=== PATIENT | female | born 1990 | race Caucasian/White ===

== ENCOUNTER 2016-11-20 12:15 | Inpatient (IN) | payer SELFPAY ==
[2016-11-20] VITALS (58 sets, daily range): BP systolic 85–146; BP diastolic 49–84; PULSE 65–98; RESP 17–18; TEMP 97.7–98.7; O2SAT 98–100
[~2016-11-20] VITALS: Ht 167.6 cm; Wt 54.0 kg
[2016-11-20] MEDS ORDERED: PREN27TA PO (12:27)
[2016-11-20] MEDS ORDERED: ZOFR4TAB IM (12:32)
[2016-11-20] MEDS ORDERED: BUPR2SUB SL (12:32)
[2016-11-20] MEDS ORDERED: SODIUM CHLOR 0.9% 1000 ML INJ 1,000 ML IV SCH (12:37)
[2016-11-20] MEDS ORDERED: SODIUM CHLORIDE 0.9% FLUSH 10 ML FLUSH IVF PRN (12:45)
[2016-11-20] MEDS ORDERED: PANTOPRAZOLE INJ 80 MG in SODIUM CHLORIDE 0.9% INJ 100 ML IV SCH (12:45)
[2016-11-20] MEDS ORDERED: PANTOPRAZOLE INJ 80 MG in SODIUM CHLORIDE 0.9% INJ 35 ML IV ONE (12:45)
[2016-11-20 13:13] LABS: AUTOMATED NEUTROPHIL # 17.9 TH/MM3 (1.8-7.7); BASOPHIL % 0.2 % (0.0-2.0); EOSINOPHIL % 0.1 % (0.0-4.0); HEMO FLAGS DIFF FINAL; LYMPH % 10.3 % (9.0-44.0); LYMPHOCYTE # 2.2 TH/MM3 (1.0-4.8); MEAN CELL VOLUME 82.6 FL (80.0-100.0); MEAN CORPUSCULAR HEMOGLOBIN 26.6 PG (27.0-34.0); MEAN CORPUSCULAR HGB CONC 32.2 % (32.0-36.0); MONO % 4.5 % (0.0-8.0); NEUT % 84.9 % (16.0-70.0); PLATELET COUNT 366 TH/MM3 (150-450); RED BLOOD COUNT 3.63 MIL/MM3 (4.00-5.30); WHITE BLOOD COUNT 21.1 TH/MM3 (4.0-11.0)
[2016-11-20 13:19] LABS: APTT (PATIENT) 28.7 SEC (24.3-30.1); INTERNATIONAL NORMALIZED RATIO 0.9 RATIO; PROTHROMBIN TIME - PATIENT 9.9 SEC (9.8-11.6)
[2016-11-20] MEDS: PANTOPRAZOLE INJ 80 MG in SODIUM CHLORIDE 0.9% INJ 100 ML IV SCH (13:28)
[2016-11-20 13:31] LABS: ANION GAP 13 MEQ/L (5-15); AST (GOT) 97 U/L (15-37); BICARBONATE 23.4 MEQ/L (21.0-32.0); BLOOD UREA NITROGEN 7 MG/DL (7-18); CHLORIDE 100 MEQ/L (98-107); GLOMERULAR FILTRATION RATE 208 ML/MIN (>89); SODIUM (NA) 136 MEQ/L (136-145)
--- NOTE | 2016-11-20 13:31 | PD ---
HPI Chief Complaint: Alcohol/Drug Intoxication Time Seen by Provider: 12:37 Travel History International Travel<30 days: No Contact w/Intl Traveler<30days: No Traveled to known affect area: No History of Present Illness HPI This is a 26-year-old female who is 35 weeks who presents to the emergency department with coffee-ground emesis. Patient was at the halfway and was released from halfway but while she was there had several episodes of dark emesis that the nurses thought was coffee-ground. She was thought to be vomiting because she is in withdrawal from IV drugs. She doesn't provide much history. She received a dose of Suboxone at halfway prior to coming here. She denies any abdominal pain, vaginal bleeding and she says she feels normal movement. She does feel some discomfort in the upper abdomen, moderate severity , constant with no fevers or chills. PFSH Past Medical History Medical History: Unable to Obtain Tetanus Vaccination: Unknown ?: : 5 Para: 4 Past Surgical History Surgical History: Unable to Obtain Social History Alcohol Use: Yes Tobacco Use: Yes Substance Use: Yes (DOCUMENTED IN TRIAGE ASSESS) Allergies-Medications (Allergen,Severity, Reaction): Coded Allergies: No Known Allergies (Unverified , 11/20/16) Reported Meds & Prescriptions Reported Meds & Active Scripts Active Reported Zofran (Ondansetron HCl) 4 Mg Tab 4 Mg IM Buprenorphine (Buprenorphine HCl) 2 Mg Subl 2 Mg SL DAILY 27-0.8 mg ( Vit W/ Ferrous Fumara) 1 Tab Tab 1 PO DAILY HS Review of Systems ROS Limitations: Poor Historian Physical Exam Narrative GENERAL: Chronically unwell-appearing SKIN: Track flores on the upper and lower extremities. HEAD: Atraumatic. Normocephalic. EYES: Pupils equal and round. No injection or drainage. ENT: Moist mucous membranes NECK: Trachea midline. CARDIOVASCULAR: Regular rate and rhythm. No murmur appreciated. RESPIRATORY: Clear to auscultation. Breath sounds equal bilaterally. GASTROINTESTINAL: Abdomen soft, tender to palpation in the epigastrium with no rebound or guarding. MUSCULOSKELETAL: No obvious deformities. NEUROLOGICAL: Sleepy but awakens to answer questions.. No obvious cranial nerve deficits. Moving all extremities. PSYCHIATRIC: Appropriate mood and affect; insight and judgment normal. Data Data Last Documented VS Vital Signs Date Time Temp Pulse Resp B/P Pulse Ox O2 Delivery O2 Flow Rate FiO2 11/20/16 13:02 89 18 120/70 98 Room Air 11/20/16 12:21 98.7 Orders Complete Blood Count With Diff (11/20/16 12:37) Comprehensive Metabolic Panel (11/20/16 12:37) Prothrombin Time / Inr (Pt) (11/20/16 12:37) Act Partial Throm Time (Ptt) (11/20/16 12:37) Type And Screen (11/20/16 12:37) Blood Product Administration .UPON TRANSFUSION (11/20/16 12:37) Ecg Monitoring (11/20/16 12:37) Iv Access Insert/Monitor (11/20/16 12:37) Oximetry (11/20/16 12:37) Sodium Chlor 0.9% 1000 Ml Inj (Ns 1000 M (11/20/16 12:37) Sodium Chloride 0.9% Flush (Ns Flush) (11/20/16 12:45) Pantoprazole Inj (Protonix Inj) (11/20/16 12:45) Electrocardiogram (11/20/16 ) Pantoprazole Inj (Protonix Inj) (11/20/16 13:00) Admit Order (Ed Use Only) (11/20/16 13:26) Labs Laboratory Tests Test 11/20/16 12:30 White Blood Count 21.1 TH/MM3 Red Blood Count 3.63 MIL/MM3 Hemoglobin 9.7 GM/DL Hematocrit 30.0 % Mean Corpuscular Volume 82.6 FL Mean Corpuscular Hemoglobin 26.6 PG Mean Corpuscular Hemoglobin 32.2 % Concent Red Cell Distribution Width 13.0 % Platelet Count 366 TH/MM3 Mean Platelet Volume 10.1 FL Neutrophils (%) (Auto) 84.9 % Lymphocytes (%) (Auto) 10.3 % Monocytes (%) (Auto) 4.5 % Eosinophils (%) (Auto) 0.1 % Basophils (%) (Auto) 0.2 % Neutrophils # (Auto) 17.9 TH/MM3 Lymphocytes # (Auto) 2.2 TH/MM3 Monocytes # (Auto) 0.9 TH/MM3 Eosinophils # (Auto) 0.0 TH/MM3 Basophils # (Auto) 0.0 TH/MM3 CBC Comment DIFF FINAL Differential Comment Prothrombin Time 9.9 SEC Prothromb Time International 0.9 RATIO Ratio Activated Partial 28.7 SEC Thromboplast Time Sodium Level 136 MEQ/L Potassium Level 4.0 MEQ/L Chloride Level 100 MEQ/L Carbon Dioxide Level 23.4 MEQ/L Anion Gap 13 MEQ/L Blood Urea Nitrogen 7 MG/DL Creatinine 0.38 MG/DL Estimat Glomerular Filtration 208 ML/MIN Rate Random Glucose 69 MG/DL Calcium Level 8.9 MG/DL Total Bilirubin 0.6 MG/DL Aspartate Amino Transf 97 U/L (AST/SGOT) Alanine Aminotransferase 96 U/L (ALT/SGPT) Alkaline Phosphatase 202 U/L Total Protein 7.3 GM/DL Albumin 2.4 GM/DL MDM Medical Decision Making Medical Screen Exam Complete: Yes Emergency Medical Condition: Yes Interpretation(s) Afebrile, mild tachycardia, normotensive Leukocytosis Hemoglobin is 9.7 Transaminitis Coags are normal Differential Diagnosis Gastritis, peptic ulcer disease, anemia, opiate withdrawal, dehydration Narrative Course This is a 26-year-old female who presents to the emergency department with coffee-ground emesis in the setting of acute opiate withdrawal. Patient was placed on a monitor and IVs were established. Labs are obtained which demonstrate anemia. She doesn't leukocytosis which may be in the setting of and in the absence of fever and don't think additional workup is necessary. Patient was put on pantoprazole. She did have coffee-ground emesis here in the emergency department which was Gastroccult positive. Patient will be placed in observation for serial hemoglobins and possible GI consultation. Diagnosis Primary Impression: Upper GI bleed Admitting Information Admitting Physician Requests: Observation Ebony Thompson MD November 20, 2016 13:31
[2016-11-20 13:32] LABS: ALKALINE PHOSPHATASE 202 U/L (45-117); ALT (GPT) 96 U/L (10-53); TOTAL BILIRUBIN ADULT 0.6 MG/DL (0.2-1.0)
[2016-11-20] MEDS ORDERED: ONDANSETRON HCL 4 MG/2 ML VIAL IV ONE (14:30)
--- NOTE | 2016-11-20 14:54 | EKG ---
Date Performed: 11/20/2016 Time Performed: 12:50:30 PTAGE: 26 years EKG: Sinus rhythm INCOMPLETE RIGHT BUNDLE BRANCH BLOCK BORDERLINE ECG NO PREVIOUS TRACING DOCTOR: Junior Vdial Interpretating Date/Time 11/20/2016 14:52:37
[2016-11-20] MEDS ORDERED: LACTATED RINGER'S 1000 ML INJ 1,000 ML IV PRN (15:23)
--- NOTE | 2016-11-20 15:23 | HHI.HP ---
HPI Chief Complaint Nausea vomiting and abdominal pain Date Seen: November 20, 2016 Time Seen: 15:16 Travel History International Travel<30 Days: No Contact w/Intl Traveler<30Days: No Known Affected Area: No History of Present Illness HPI 26-year-old who is at 35 weeks 2 days based on an EDC of December 24, 2016. This EDC was given to her at 26 weeks based on an ultrasound performed at the snf. Patient has had no other care except for that which she received in the snf. Patient states that she has had some abdominal pain off and on over the past 3 or 4 days then last night began to have nausea and vomiting and notes a little bit of blood in the emesis this morning. She states that she is positive for hepatitis C and has been abusing Dilaudid throughout the and takes 3 mg IV daily. She admits to using methamphetamines and smoking marijuana. She complains of a watery discharge since this morning. Para: 0 : 1 History Past Medical History Narrative Medical Hepatitis C IV drug abuse Past Surgical History Narrative Surgical Appendectomy Family History Family History: Negative Social History Alcohol Use: No Tobacco Use: Yes Substance Abuse: Yes Allergies-Medications (Allergen,Severity, Reaction): Coded Allergies: No Known Allergies (Unverified , 11/20/16) Home Meds Reported Medications Ondansetron (Zofran)4 Mg Tab4 Mg IM Ref 0 11/20/16 Buprenorphine 2 Mg Subl2 Mg SL DAILY 11/20/16 Vit W/ Ferrous Fumara ( 27-0.8 mg)1 Tab Tab1 Po Daily Hs 11/20/16 Review of Systems Gastrointestinal: Nausea, Vomiting, Abdominal Pain Genitourinary: Dribbling, Incontinence Skin: Rash, Itching, Change in Pigmentation Psychiatric: Anxiety Physical Exam Vital Signs Date Time Temp Pulse Resp B/P Pulse Ox O2 Delivery O2 Flow Rate FiO2 11/20/16 14:25 85 18 118/68 98 Room Air 11/20/16 13:02 89 18 120/70 98 Room Air 11/20/16 12:58 83 18 127/72 99 Room Air 11/20/16 12:39 98 Room Air 11/20/16 12:21 98.7 94 18 124/84 98 Narrative GENERAL: Well-nourished, well-developed patient. SKIN: Warm and dry. Multiple lesions throughout her skin consistent with IV drug abuse external jugular IV intact HEAD: Normocephalic and atraumatic. EYES: No scleral icterus. No injection or drainage. ENT: No nasal drainage noted. Mucous membranes pink. Airway patent. NECK: Supple, trachea midline. No JVD. CARDIOVASCULAR: Regular rate and rhythm without murmurs, gallops, or rubs. RESPIRATORY: Breath sounds equal bilaterally. No accessory muscle use. BREASTS: Bilateral exam showed no masses , no retractions, no nipple discharge. ABDOMEN/GI: Abdomen soft, non-tender, bowel sounds present, no rebound, no guarding Gravid to [-28] weeks size Fundal Height: [-] GENITOURINARY: External Genitalia: intact and normal in appearance BUS glands: [-Normal] obvious rupture membranes with clear fluid noted vaginally Cervix: [-Anterior] Dilatation: [-3] Effacement: [-100%] Station: [--1] Presentation: [-Vertex] Membranes: [ruptured] Uterine Contractions: [Every 3 minutes-] FHT's: Category: [1] Baseline: [-140] Reactive: [Moderate-] Variability: [-Moderate] Decels: [-Variable deceleration to 90s with her first contraction when she was initially admitted none since that time] EXTREMITIES: No cyanosis or edema. BACK: Nontender without obvious deformity. No CVA tenderness. NEUROLOGICAL: Awake and alert. Motor and sensory grossly within normal limits. Five out of 5 muscle strength in all muscle groups. Normal speech. Data Data Orders Complete Blood Count With Diff (11/20/16 12:37) Comprehensive Metabolic Panel (11/20/16 12:37) Prothrombin Time / Inr (Pt) (11/20/16 12:37) Act Partial Throm Time (Ptt) (11/20/16 12:37) Type And Screen (11/20/16 12:37) Blood Product Administration .UPON TRANSFUSION (11/20/16 12:37) Ecg Monitoring (11/20/16 12:37) Iv Access Insert/Monitor (11/20/16 12:37) Oximetry (11/20/16 12:37) Sodium Chlor 0.9% 1000 Ml Inj (Ns 1000 M (11/20/16 12:37) Sodium Chloride 0.9% Flush (Ns Flush) (11/20/16 12:45) Pantoprazole Inj (Protonix Inj) (11/20/16 12:45) Electrocardiogram (11/20/16 ) Pantoprazole Inj (Protonix Inj) (11/20/16 13:00) Admit Order (Ed Use Only) (11/20/16 13:26) Ondansetron Inj (Zofran Inj) (11/20/16 14:30) Place In Observation (11/20/16 ) Ob (2e) Additional Admit Info (11/20/16 14:57) Labs Laboratory Tests Test 11/20/16 12:30 White Blood Count 21.1 Red Blood Count 3.63 Hemoglobin 9.7 Hematocrit 30.0 Mean Corpuscular Volume 82.6 Mean Corpuscular Hemoglobin 26.6 Mean Corpuscular Hemoglobin 32.2 Concent Red Cell Distribution Width 13.0 Platelet Count 366 Mean Platelet Volume 10.1 Neutrophils (%) (Auto) 84.9 Lymphocytes (%) (Auto) 10.3 Monocytes (%) (Auto) 4.5 Eosinophils (%) (Auto) 0.1 Basophils (%) (Auto) 0.2 Neutrophils # (Auto) 17.9 Lymphocytes # (Auto) 2.2 Monocytes # (Auto) 0.9 Eosinophils # (Auto) 0.0 Basophils # (Auto) 0.0 CBC Comment DIFF FINAL Differential Comment Prothrombin Time 9.9 Prothromb Time International 0.9 Ratio Activated Partial 28.7 Thromboplast Time Sodium Level 136 Potassium Level 4.0 Chloride Level 100 Carbon Dioxide Level 23.4 Anion Gap 13 Blood Urea Nitrogen 7 Creatinine 0.38 Estimat Glomerular Filtration 208 Rate Random Glucose 69 Calcium Level 8.9 Total Bilirubin 0.6 Aspartate Amino Transf 97 (AST/SGOT) Alanine Aminotransferase 96 (ALT/SGPT) Alkaline Phosphatase 202 Total Protein 7.3 Albumin 2.4 Blood Type O NEGATIVE Antibody Screen NEGATIVE Blood Bank Comment Assessment/Plan Assessment and Plan Patient at 35 weeks 2 days by very limited obstetrical criteria Nausea and vomiting patient has no nausea presently no vomiting since she arrived patient was placed on a Protonix drip in the emergency department as they were attempting to rule out an upper GI bleed Elevated white blood cell count most likely due to level labor Hepatitis C Elevated AST and ALTs although this could be with an atypical preeclamptic syndrome is just is likely that this is due to her hepatitis C disease, patient has normal platelets, normal creatinine, and has normal blood pressure Group B strep unknown will treat prophylactically given her gestational age Size less than dates and according to the patient data she should be at least 35 weeks based on her ultrasound but given her limited care I cannot rule out a fetus, patient is presently in active labor Leonela Syed MD November 20, 2016 15:23
[2016-11-20] MEDS ORDERED: ONDANSETRON HCL 4 MG/2 ML VIAL IV PRN (15:30)
[2016-11-20] MEDS ORDERED: LIDOCAINE HCL 1% 50 ML VIAL INFIL PRN (15:30)
[2016-11-20] MEDS ORDERED: PENICILLIN G POTASSIUM INJ 5,000,000 UNITS in SODIUM CHLORIDE 0.9% INJ 100 ML IV ONE (15:30)
[2016-11-20] MEDS ORDERED: OXYTOCIN 30 UNITS-500ML PREMIX 500 ML IV ONE (15:30)
[2016-11-20] MEDS ORDERED: SODIUM CHLORID 0.9% 500 ML INJ 500 ML IV PRN (15:30)
[2016-11-20] MEDS ORDERED: LIDOCAINE HCL 1% 50 ML VIAL I-DERMAL PRN (15:30)
[2016-11-20] MEDS ORDERED: CITRIC ACID-SODIUM CITRATE LIQ 30 ML UDC PO SCH (15:30)
[2016-11-20] MEDS ORDERED: MINERAL OIL 10 ML VIAL TOPICAL PRN (15:30)
[2016-11-20] MEDS ORDERED: ePHEDrine/NS 25 MG/5 ML SYR ONE (15:32)
[2016-11-20] MEDS ORDERED: fentaNYL 2MCG-BUPIV 0.125% INJ 100 ML ONE (15:32)
[2016-11-20] MEDS ORDERED: SODIUM CHLOR 0.9% 1000 ML INJ 1,000 ML IV PRN (15:43)
[2016-11-20 15:44] LABS: BLOOD, URINE SMALL (NEG); COMMENT (UR) CULTURE INDICATED; CULTURE IF INDICATED CULTURE INDICATED; GLUCOSE,URINE NEG (NEG); KETONE, URINE 150 mg/dL (NEG); MUCUS URINE FEW /lpf (OCC); NITRITE,URINE NEG (NEG); SQUAMOUS EPITHELIAL CELL URINE 7 /hpf (0-5); URINE COLOR YELLOW (YELLW/STRAW)
[2016-11-20] MEDS ORDERED: MEASLES, MUMPS, RUBELLA VACCINE 0.5 ML VIAL SQ ONE (16:00)
[2016-11-20] MEDS ORDERED: DIPHTH/TETANUS/ACEL PERTUSSIS (BOOSTER) 0.5 ML VIAL/PFS IM ONE (16:00)
[2016-11-20 16:01] LABS: BARBITURATES, URINE NEG (NEG); COCAINE, URINE NEG (NEG)
[2016-11-20] MEDS: LACTATED RINGER'S 1000 ML INJ 1,000 ML IV SCH ×2 (16:03→23:23)
[2016-11-20 16:18] LABS: AMPHETAMINE, URINE POS (NEG)
[2016-11-20] MEDS ORDERED: ePHEDrine/NS 25 MG/5 ML SYR IV PRN (16:30)
[2016-11-20] MEDS ORDERED: DO NOT ADMINISTER ANTICOAGULANTS PRN (16:30)
[2016-11-20] MEDS ORDERED: fentaNYL 2MCG-BUPIV 0.125% 100 ML EPIDURAL SCH (16:30)
[2016-11-20] MEDS ORDERED: NO SYSTEM NARCOTICS PRN (16:30)
--- NOTE | 2016-11-20 17:44 | PD.LABORPN ---
Subjective Subjective Much improved pain after epidural placed. No nausea and vomiting since admission. Protonix infusion continuing Objective Vital Signs Vital Signs Date Time Temp Pulse Resp B/P Pulse Ox O2 Delivery O2 Flow Rate FiO2 11/20/16 17:30 81 121/80 11/20/16 17:26 17 11/20/16 17:20 78 117/70 11/20/16 17:15 97.7 17 11/20/16 17:15 77 111/72 11/20/16 17:10 108/59 11/20/16 17:10 75 11/20/16 17:05 103/63 11/20/16 17:05 85 11/20/16 17:00 81 109/58 11/20/16 16:55 93 101/64 11/20/16 16:50 17 11/20/16 16:50 86 121/72 11/20/16 16:45 95 110/63 11/20/16 16:45 17 11/20/16 16:40 81 119/70 11/20/16 16:35 89 124/69 11/20/16 16:30 93 118/74 11/20/16 16:29 18 11/20/16 16:25 94 119/73 11/20/16 16:21 90 129/72 11/20/16 16:15 89 17 118/68 11/20/16 16:10 116/66 11/20/16 16:10 76 11/20/16 16:05 86 11/20/16 16:05 124/75 11/20/16 16:00 95 11/20/16 16:00 112/71 11/20/16 15:55 81 11/20/16 15:55 86 123/78 99 11/20/16 15:50 99 11/20/16 15:50 78 123/73 11/20/16 15:50 68 11/20/16 15:45 88 130/78 11/20/16 15:40 86 11/20/16 15:40 99 11/20/16 15:40 82 131/79 11/20/16 15:35 100 11/20/16 15:35 71 11/20/16 14:25 85 18 118/68 98 Room Air 11/20/16 13:02 89 18 120/70 98 Room Air 11/20/16 12:58 83 18 127/72 99 Room Air 11/20/16 12:39 98 Room Air 11/20/16 12:21 98.7 94 18 124/84 98 Objective Pelvic Exam: Cervix: [] Dilatation: [-5] Effacement: [100] Station: [-1] Presentation: [vtx-] Membranes: [intact or ruptured] Uterine Contractions: [q4-] FHT's: Category: [1] Baseline: [-145] Reactive: [-mod] Variability: [-mod] Decels: [-early Laboratory Tests Test 11/20/16 11/20/16 12:30 15:00 White Blood Count 21.1 TH/MM3 Red Blood Count 3.63 MIL/MM3 Hemoglobin 9.7 GM/DL Hematocrit 30.0 % Mean Corpuscular Volume 82.6 FL Mean Corpuscular Hemoglobin 26.6 PG Mean Corpuscular Hemoglobin 32.2 % Concent Red Cell Distribution Width 13.0 % Platelet Count 366 TH/MM3 Mean Platelet Volume 10.1 FL Neutrophils (%) (Auto) 84.9 % Lymphocytes (%) (Auto) 10.3 % Monocytes (%) (Auto) 4.5 % Eosinophils (%) (Auto) 0.1 % Basophils (%) (Auto) 0.2 % Neutrophils # (Auto) 17.9 TH/MM3 Lymphocytes # (Auto) 2.2 TH/MM3 Monocytes # (Auto) 0.9 TH/MM3 Eosinophils # (Auto) 0.0 TH/MM3 Basophils # (Auto) 0.0 TH/MM3 CBC Comment DIFF FINAL Differential Comment Prothrombin Time 9.9 SEC Prothromb Time International 0.9 RATIO Ratio Activated Partial 28.7 SEC Thromboplast Time Sodium Level 136 MEQ/L Potassium Level 4.0 MEQ/L Chloride Level 100 MEQ/L Carbon Dioxide Level 23.4 MEQ/L Anion Gap 13 MEQ/L Blood Urea Nitrogen 7 MG/DL Creatinine 0.38 MG/DL Estimat Glomerular Filtration 208 ML/MIN Rate Random Glucose 69 MG/DL Calcium Level 8.9 MG/DL Total Bilirubin 0.6 MG/DL Aspartate Amino Transf 97 U/L (AST/SGOT) Alanine Aminotransferase 96 U/L (ALT/SGPT) Alkaline Phosphatase 202 U/L Total Protein 7.3 GM/DL Albumin 2.4 GM/DL Blood Type O NEGATIVE Antibody Screen NEGATIVE Blood Bank Comment Urine Color YELLOW Urine Turbidity HAZY Urine pH 6.0 Urine Specific Sellers 1.024 Urine Protein 100 mg/dL Urine Glucose (UA) NEG mg/dL Urine Ketones 150 mg/dL Urine Occult Blood SMALL Urine Nitrite NEG Urine Bilirubin NEG Urine Urobilinogen 2.0 MG/DL Urine Leukocyte Esterase TRACE Urine RBC 22 /hpf Urine WBC 10 /hpf Urine Squamous Epithelial 7 /hpf Cells Urine Mucus FEW /lpf Microscopic Urinalysis Comment CULTURE INDICATED Urine Opiates Screen POS Urine Barbiturates Screen NEG Urine Amphetamines Screen POS Urine Benzodiazepines Screen NEG Urine Cocaine Screen NEG Urine Cannabinoids Screen NEG ] Assessment/Plan Assessment and Plan 35 weeks 2 day gestation in labor - On penicillin GBS prophylaxis. Minimal care Hematemesis per ED - presently on protonix. Will consult GI . No nausea and vomiting since admission History of incarceration History of Multi-drug use - drug screen positive for opioids and amphetamines - NICU aware Elevated transaminases - Hep C positive. screen sent. No signs of HELLP or Severe preeclampsia at this point Progressing well in labor at this time Leonela Syed MD November 20, 2016 17:44
[2016-11-20] MEDS ORDERED: ONDANSETRON ODT 4 MG TAB PO PRN (19:30)
[2016-11-20] MEDS ORDERED: WITCH HAZEL 50%/GLYCERIN 12.5% 40 PAD JAR TOPICAL PRN (19:30)
[2016-11-20] MEDS ORDERED: SODIUM CHLORIDE 0.9% FLUSH 10 ML FLUSH IV FLUSH PRN (19:30)
[2016-11-20] MEDS ORDERED: BENZOCAINE 20% TOPICAL SPRAY 60 ML CAN TOPICAL PRN (19:30)
[2016-11-20] MEDS ORDERED: ALUMINUM/MAGNESIUM/SIMETH 30 ML CUP PO PRN (19:30)
[2016-11-20] MEDS ORDERED: DOCUSATE SODIUM 50 MG/SENNA 8.6 MG TAB PO PRN (19:30)
[2016-11-20] MEDS ORDERED: ZOLPIDEM TARTRATE 5 MG TAB PO PRN (19:30)
[2016-11-20] MEDS ORDERED: LORazepam 1 MG TAB PO PRN (19:30)
--- NOTE | 2016-11-20 19:30 | PD.OB.DELI ---
Delivery Date: November 20, 2016 Anesthesia: Epidural Episiotomy: None Vaginal Delivery: Normal, Spontaneous Presentation: Occiput anterior Nuchal Cord: None Delayed cord clamping (45 sec): Yes Infant: Male One Minute : 9 Five Minute : 9 Weight: 2525mg Placenta: Spontaneous delivery, Other (300cc dark red blood after delivery of baby c/w partial abruption) Laceration: No lacerations (left periurethral not repaired) Leonela Syed MD November 20, 2016 19:30
--- NOTE | 2016-11-20 19:42 | PD.LABORPN ---
Subjective Subjective Patient with emesis x 2 while in labor, no hematemesis noted. Main ED was concerned about upper GI bleed and started patient on Protonix drip. Will consult GI due to their observations. Objective Vital Signs Vital Signs Date Time Temp Pulse Resp B/P Pulse Ox O2 Delivery O2 Flow Rate FiO2 11/20/16 19:24 18 11/20/16 19:20 81 107/70 11/20/16 18:30 75 129/66 11/20/16 18:30 75 11/20/16 18:15 78 115/70 11/20/16 18:15 78 11/20/16 18:10 82 11/20/16 18:05 77 11/20/16 18:00 78 105/67 11/20/16 18:00 82 11/20/16 17:55 80 11/20/16 17:48 78 112/73 11/20/16 17:46 83 85/49 11/20/16 17:30 81 121/80 11/20/16 17:26 17 11/20/16 17:20 78 117/70 11/20/16 17:15 97.7 17 11/20/16 17:15 77 111/72 11/20/16 17:10 108/59 11/20/16 17:10 75 11/20/16 17:05 103/63 11/20/16 17:05 85 11/20/16 17:00 81 109/58 11/20/16 16:55 93 101/64 11/20/16 16:50 17 11/20/16 16:50 86 121/72 11/20/16 16:45 95 110/63 11/20/16 16:45 17 11/20/16 16:40 81 119/70 11/20/16 16:35 89 124/69 11/20/16 16:30 93 118/74 11/20/16 16:29 18 11/20/16 16:25 94 119/73 11/20/16 16:21 90 129/72 11/20/16 16:15 89 17 118/68 11/20/16 16:10 116/66 11/20/16 16:10 76 11/20/16 16:05 86 11/20/16 16:05 124/75 11/20/16 16:00 95 11/20/16 16:00 112/71 11/20/16 15:55 81 11/20/16 15:55 86 123/78 99 11/20/16 15:50 99 11/20/16 15:50 78 123/73 11/20/16 15:50 68 11/20/16 15:45 88 130/78 11/20/16 15:40 86 11/20/16 15:40 99 11/20/16 15:40 82 131/79 11/20/16 15:35 100 11/20/16 15:35 71 11/20/16 14:25 85 18 118/68 98 Room Air 11/20/16 13:02 89 18 120/70 98 Room Air 11/20/16 12:58 83 18 127/72 99 Room Air 11/20/16 12:39 98 Room Air 11/20/16 12:21 98.7 94 18 124/84 98 Objective Pelvic Exam: Cervix: [-] Dilatation: [-] Effacement: [-] Station: [-] Presentation: [-] Membranes: [intact or ruptured] Uterine Contractions: [-] FHT's: Category: [-] Baseline: [-] Reactive: [-] Variability: [-] Decels: [-] Assessment/Plan Assessment and Plan s/p Multi drug abuse including cocaine, meth, marijuana, and Dilaudid Evidence of possible upper GI bleed per Main ED - patient is presently on Protonix Consult Leonela Malloy MD November 20, 2016 19:41
[2016-11-20] MEDS: PENICILLIN G POTASSIUM INJ 2,500,000 UNITS in SODIUM CHLORIDE 0.9% INJ 100 ML IV SCH (23:49)
[2016-11-21] MEDS: ACETAMINOPHEN 325 MG TAB PO PRN ×2 (00:24→14:42)
[2016-11-21] MEDS: PANTOPRAZOLE INJ 80 MG in SODIUM CHLORIDE 0.9% INJ 100 ML IV SCH ×3 (00:35→18:34)
[2016-11-21] MEDS: SODIUM CHLORIDE 0.9% FLUSH 10 ML FLUSH IV FLUSH SCH ×2 (00:36→21:45)
[2016-11-21] MEDS: PENICILLIN G POTASSIUM INJ 2,500,000 UNITS in SODIUM CHLORIDE 0.9% INJ 100 ML IV SCH (03:49)
[2016-11-21 08:50] VITALS: BP 123/78; PULSE 97; RESP 18; TEMP 98.2
--- NOTE | 2016-11-21 09:58 | HHI.OB ---
Subjective Post Day: 1 Remarks Pt seen and examined this morning. day # 1 AFVSS overnight. Decreased lochia. Denies dysuria. No breast tenderness. She is feeding the baby via bottle. Patient with a good appetite and she ate breakfast, although she was informed at her nurse that she is to remain NPO pending further evaluation by GI. No nausea or vomiting. Last episode of vomiting was yesterday. Patient has not yet had a bowel movement. +flatus. Ambulating well. Denies calf pain or shortness of breath. Otherwise, she is doing well this morning and has no other concerns. (Mendy Saals MD R2) Objective Vitals/I&O Vital Signs Date Time Temp Pulse Resp B/P Pulse Ox O2 Delivery O2 Flow Rate FiO2 11/21/16 08:50 98.2 97 18 123/78 11/20/16 22:15 18 11/20/16 22:01 98 121/63 11/20/16 21:46 84 128/70 11/20/16 21:45 18 11/20/16 21:31 75 128/69 11/20/16 21:16 66 130/67 11/20/16 21:15 18 11/20/16 21:01 70 146/71 11/20/16 20:46 73 137/70 11/20/16 20:45 18 11/20/16 20:31 65 138/75 11/20/16 20:16 66 141/67 11/20/16 20:15 18 11/20/16 20:01 75 146/77 11/20/16 19:46 78 145/83 11/20/16 19:45 97.9 11/20/16 19:31 81 142/78 11/20/16 19:26 80 137/64 11/20/16 19:24 18 11/20/16 19:20 81 107/70 11/20/16 18:30 75 129/66 11/20/16 18:30 75 11/20/16 18:15 78 115/70 11/20/16 18:15 78 11/20/16 18:10 82 11/20/16 18:05 77 11/20/16 18:00 78 105/67 11/20/16 18:00 82 11/20/16 17:55 80 11/20/16 17:48 78 112/73 11/20/16 17:46 83 85/49 11/20/16 17:30 81 121/80 11/20/16 17:26 17 11/20/16 17:20 78 117/70 11/20/16 17:15 97.7 17 11/20/16 17:15 77 111/72 11/20/16 17:10 108/59 11/20/16 17:10 75 11/20/16 17:05 103/63 11/20/16 17:05 85 11/20/16 17:00 81 109/58 11/20/16 16:55 93 101/64 11/20/16 16:50 17 11/20/16 16:50 86 121/72 11/20/16 16:45 95 110/63 11/20/16 16:45 17 11/20/16 16:40 81 119/70 11/20/16 16:35 89 124/69 11/20/16 16:30 93 118/74 11/20/16 16:29 18 11/20/16 16:25 94 119/73 11/20/16 16:21 90 129/72 11/20/16 16:15 89 17 118/68 11/20/16 16:10 116/66 11/20/16 16:10 76 11/20/16 16:05 86 11/20/16 16:05 124/75 11/20/16 16:00 95 11/20/16 16:00 112/71 11/20/16 15:55 81 11/20/16 15:55 86 123/78 99 11/20/16 15:50 99 11/20/16 15:50 78 123/73 11/20/16 15:50 68 11/20/16 15:45 88 130/78 11/20/16 15:40 86 11/20/16 15:40 99 11/20/16 15:40 82 131/79 11/20/16 15:35 100 11/20/16 15:35 71 11/20/16 14:25 85 18 118/68 98 Room Air 11/20/16 13:02 89 18 120/70 98 Room Air 11/20/16 12:58 83 18 127/72 99 Room Air 11/20/16 12:39 98 Room Air 11/20/16 12:21 98.7 94 18 124/84 98 Objective Remarks GENERAL: Well-nourished, well-developed patient. CARDIOVASCULAR: Regular rate and rhythm without murmurs, gallops, or rubs. RESPIRATORY: Breath sounds equal bilaterally. No accessory muscle use. ABDOMEN/GI: Abdomen soft, non-tender. Fundus: Firm, non-tender at umbilicus. GENITOURINARY: Light to moderate bleeding. EXTREMITIES: No cyanosis or edema, non-tender, without signs of DVT. Medications and IVs Current Medications Medications (Trade) Dose Ordered Sig/Sarah Route Start Time Stop Time Status Last Admin Pantoprazole Sodium 80 mg/ Sodium Chloride 100 ml @ 10 mls/hr Q10H IV 11/20/16 13:00 11/21/16 08:53 Lactated Ringer's 1,000 ml @ 125 mls/hr Q8H IV 11/20/16 15:23 11/20/16 16:03 Lactated Ringer's 1,000 ml @ 3,000 mls/hr Q20M PRN IV 11/20/16 15:23 11/20/16 16:02 (NS 1000 ml Inj) 1,000 ml @ 100 mls/hr Q10H PRN IV 11/20/16 15:43 (Zofran Inj) 4 mg Q6H PRN IV 11/20/16 15:30 (fentaNYL INJ) 50 mcg Q1H PRN IV PUSH 11/20/16 15:30 Fentanyl Citrate 100 mcg 100 mcg Q1H PRN IV PUSH 11/20/16 15:30 (Pfizerpen-G Inj/ NS Inj) 100 ml @ 200 mls/hr Q4H IV 11/20/16 20:00 (Muri-Lube Oil) 10 ml UNSCH PRN TOPICAL 11/20/16 15:30 Miscellaneous Information No systemic narcotics to be given except... UNSCH PRN .XX 11/20/16 16:30 11/21/16 16:29 Miscellaneous Information DO NOT ADMINISTER ANY ANTICOAGUL... UNSCH PRN .XX 11/20/16 16:30 11/21/16 16:29 (fentaNYL 2MCG-BUPIV 0.125% INJ) 100 ml @ 0 mls/hr TITRATE EPIDURAL 11/20/16 16:30 11/20/16 16:27 (ePHEDrine/NS 25 MG/5 ML SYR) 10 mg UNSCH PRN IV 11/20/16 16:30 11/21/16 16:29 (NS Flush) 2 ml BID IV FLUSH 11/20/16 21:00 11/21/16 00:36 (NS Flush) 2 ml UNSCH PRN IV FLUSH 11/20/16 19:30 (Tylenol) 650 mg Q4H PRN PO 11/20/16 19:30 11/21/16 00:24 (Motrin) 600 mg Q6H PRN PO 11/20/16 19:30 (Americaine 20% Top Spr) 1 spray Q4H PRN TOPICAL 11/20/16 19:30 11/21/16 00:24 (Tucks Pads) 1 applic QID PRN TOPICAL 11/20/16 19:30 11/21/16 00:23 (Rimma-Colace) 2 tab Q12H PRN PO 11/20/16 19:30 (Ambien) 5 mg HS PRN PO 11/20/16 19:30 (Mag-Al Plus Susp Liq) 15 ml Q8H PRN PO 11/20/16 19:30 (Zofran Odt) 4 mg Q6H PRN PO 11/20/16 19:30 (Ativan) 1 mg Q12H PRN PO 11/20/16 19:30 (Mendy Salas MD R2) Assessment/Plan Assessment and Plan 26 y/o female who is PPD# 1 s/p . Patient with possible GI bleed. Vaginal delivery, delivered -Continue routine care. -Percocet and Motrin PRN pain. -Encouraged OOB. Advised pelvic rest for 6 wks. -Re: ctrl, she would like to further consider her options. Possible GI bleed -Pt to be NPO -GI has been consulted, appreciate recommendations -Pt with reported coffee ground emesis while in the ED. On admission hemoglobin stable at 9.7. Patient with no additional episodes of emesis, denies hematochezia. She has not yet had a bowel movement, has not noted black or bloody stools. -Pt on Protonix drip dw Dr. Kunal MD Discharge Planning -Anticipate discharge tomorrow. (Mendy Salas MD R2) Collaborating MD Comments Agree with exam and plan (Leonela Syed MD) Mendy Salas MD R2 November 21, 2016 09:58 Leonela Syed MD Dec 08, 2016 07:34
--- NOTE | 2016-11-21 10:48 | PD.CONS ---
HPI History of Present Illness This is a 26 year old [woman] post who began having n/v 2 d ago and yesterda noticed 1 x emesis with dark red blood. No n/v today and pt is asking to eat. She has never had hematemesis before. Denies blood in stool, tarry stool. Denies frequent NSAID use, ETOH. Admits illicit drug use 3-4 days ago but does not want to elaborate. (Jessica Gardner) PFSH Past Medical History HEP C IV drug use Past Surgical History appendectomy (Jessica Gardner) Coded Allergies: No Known Allergies (Unverified , 11/20/16) Family History unk Social History no etoh 1/2 ppd per EMR IV dilaudid, methamphetamine, marijuana. (Jessica Gardner) Review of Systems Constitutional: DENIES: Fever Eyes: DENIES: Blurred vision Ears, nose, mouth, throat: DENIES: Hearing loss Gastrointestinal: COMPLAINS OF: Abdominal pain (labor), Nausea, Vomiting, Hematemesis, DENIES: Black stools, Bloody stools, Constipation, Diarrhea Genitourinary: DENIES: Hematuria Musculoskeletal: DENIES: Muscle aches Integumentary: DENIES: Abnormal pigmentation Hematologic/lymphatic: DENIES: Bruising Neurologic: DENIES: Abnormal gait Psychiatric: DENIES: Confusion (Jessica Gardner) GI Exam Vitals I&O Vital Signs Date Time Temp Pulse Resp B/P Pulse Ox O2 Delivery O2 Flow Rate FiO2 11/21/16 08:50 98.2 97 18 123/78 11/20/16 22:15 18 11/20/16 22:01 98 121/63 11/20/16 21:46 84 128/70 11/20/16 21:45 18 11/20/16 21:31 75 128/69 11/20/16 21:16 66 130/67 11/20/16 21:15 18 11/20/16 21:01 70 146/71 11/20/16 20:46 73 137/70 11/20/16 20:45 18 11/20/16 20:31 65 138/75 11/20/16 20:16 66 141/67 11/20/16 20:15 18 11/20/16 20:01 75 146/77 11/20/16 19:46 78 145/83 11/20/16 19:45 97.9 11/20/16 19:31 81 142/78 11/20/16 19:26 80 137/64 11/20/16 19:24 18 11/20/16 19:20 81 107/70 11/20/16 18:30 75 129/66 11/20/16 18:30 75 11/20/16 18:15 78 115/70 11/20/16 18:15 78 11/20/16 18:10 82 11/20/16 18:05 77 11/20/16 18:00 78 105/67 11/20/16 18:00 82 11/20/16 17:55 80 11/20/16 17:48 78 112/73 11/20/16 17:46 83 85/49 11/20/16 17:30 81 121/80 11/20/16 17:26 17 11/20/16 17:20 78 117/70 11/20/16 17:15 97.7 17 11/20/16 17:15 77 111/72 11/20/16 17:10 108/59 11/20/16 17:10 75 11/20/16 17:05 103/63 11/20/16 17:05 85 11/20/16 17:00 81 109/58 11/20/16 16:55 93 101/64 11/20/16 16:50 17 11/20/16 16:50 86 121/72 11/20/16 16:45 95 110/63 17 16:45 17 11/20/16 16:40 81 119/70 11/20/16 16:35 89 124/69 11/20/16 16:30 93 118/74 11/20/16 16:29 18 11/20/16 16:25 94 119/73 11/20/16 16:21 90 129/72 11/20/16 16:15 89 17 118/68 11/20/16 16:10 116/66 17 16:10 76 11/20/16 16:05 86 11/20/16 16:05 124/75 11/20/16 16:00 95 11/20/16 16:00 112/71 11/20/16 15:55 81 11/20/16 15:55 86 123/78 99 11/20/16 15:50 99 11/20/16 15:50 78 123/73 11/20/16 15:50 68 11/20/16 15:45 88 130/78 11/20/16 15:40 86 11/20/16 15:40 99 11/20/16 15:40 82 131/79 11/20/16 15:35 100 11/20/16 15:35 71 11/20/16 14:25 85 18 118/68 98 Room Air 11/20/16 13:02 89 18 120/70 98 Room Air 11/20/16 12:58 83 18 127/72 99 Room Air 11/20/16 12:39 98 Room Air 11/20/16 12:21 98.7 94 18 124/84 98 Laboratory Test 11/20/16 11/20/16 11/20/16 12:30 15:00 16:49 White Blood Count 21.1 TH/MM3 Red Blood Count 3.63 MIL/MM3 Hemoglobin 9.7 GM/DL Hematocrit 30.0 % Mean Corpuscular Volume 82.6 FL Mean Corpuscular Hemoglobin 26.6 PG Mean Corpuscular Hemoglobin 32.2 % Concent Red Cell Distribution Width 13.0 % Platelet Count 366 TH/MM3 Mean Platelet Volume 10.1 FL Neutrophils (%) (Auto) 84.9 % Lymphocytes (%) (Auto) 10.3 % Monocytes (%) (Auto) 4.5 % Eosinophils (%) (Auto) 0.1 % Basophils (%) (Auto) 0.2 % Neutrophils # (Auto) 17.9 TH/MM3 Lymphocytes # (Auto) 2.2 TH/MM3 Monocytes # (Auto) 0.9 TH/MM3 Eosinophils # (Auto) 0.0 TH/MM3 Basophils # (Auto) 0.0 TH/MM3 CBC Comment DIFF FINAL Differential Comment Prothrombin Time 9.9 SEC Prothromb Time International 0.9 RATIO Ratio Activated Partial 28.7 SEC Thromboplast Time Sodium Level 136 MEQ/L Potassium Level 4.0 MEQ/L Chloride Level 100 MEQ/L Carbon Dioxide Level 23.4 MEQ/L Anion Gap 13 MEQ/L Blood Urea Nitrogen 7 MG/DL Creatinine 0.38 MG/DL Estimat Glomerular Filtration 208 ML/MIN Rate Random Glucose 69 MG/DL Calcium Level 8.9 MG/DL Total Bilirubin 0.6 MG/DL Aspartate Amino Transf 97 U/L (AST/SGOT) Alanine Aminotransferase 96 U/L (ALT/SGPT) Alkaline Phosphatase 202 U/L Total Protein 7.3 GM/DL Albumin 2.4 GM/DL Blood Type O NEGATIVE Antibody Screen NEGATIVE Blood Bank Comment Urine Color YELLOW Urine Turbidity HAZY Urine pH 6.0 Urine Specific [place] 1.024 Urine Protein 100 mg/dL Urine Glucose (UA) NEG mg/dL Urine Ketones 150 mg/dL Urine Occult Blood SMALL Urine Nitrite NEG Urine Bilirubin NEG Urine Urobilinogen 2.0 MG/DL Urine Leukocyte Esterase TRACE Urine RBC 22 /hpf Urine WBC 10 /hpf Urine Squamous Epithelial 7 /hpf Cells Urine Mucus FEW /lpf Microscopic Urinalysis Comment CULTURE INDICATED Urine Opiates Screen POS Urine Barbiturates Screen NEG Urine Amphetamines Screen POS Urine Benzodiazepines Screen NEG Urine Cocaine Screen NEG Urine Cannabinoids Screen NEG HIV (1&2) Antibody NEGATIVE Date/Time Procedure Status Source Growth 11/20/16 15:00 Urine Culture Received Urine Clean Catch Pending Physical Examination HEENT: EOMI; normocephalic; atraumatic; no jaundice. CHEST: CTA CARDIAC: RRR ABDOMEN: lower abd firm and tender (post ), distended hepatosplenomegaly ; bowel sounds are present in all four quadrants. EXTREMITIES: No clubbing, cyanosis, or edema. SKIN: Scabbed lesions on face; no rash; no jaundice. PLY BANDER: No focal deficits; alert and oriented times three. (Jessica Gardner) Assessment and Plan Plan ASSESSMENT - hematemesis - Hgb 9.7. 1 x episode hematemesis during 2 day bout of n/v. Pt pos methamphetamines, opiates, abuses IV dilaudid per EMR. Will do EGD tomorrow. PLAN - EGD tomorrow - obtain consents - NPO after midnight - monitor HH - supportive care - further recommendations to follow results procedure This pt seen by myself and Dr Hernandez and this note is written on his behalf ( Jessica Gardner) Physician Comments Seen and examined,plan as above, for EGD. (Bertin Hernandez MD) Jessica Gardner November 21, 2016 10:48 Bertin Hernandez MD November 22, 2016 07:10
[2016-11-21] MEDS: IBUPROFEN 600 MG TAB PO PRN (14:42)
[2016-11-21 20:00] VITALS: BP 126/73; PULSE 70; RESP 18; TEMP 98.1
[2016-11-22] MEDS: PANTOPRAZOLE INJ 80 MG in SODIUM CHLORIDE 0.9% INJ 100 ML IV SCH (05:31)
[2016-11-22] MEDS: ACETAMINOPHEN 325 MG TAB PO PRN (07:18)
[2016-11-22] MEDS: IBUPROFEN 600 MG TAB PO PRN (07:19)
[2016-11-22 08:00] VITALS: BP 119/75; PULSE 73; RESP 16; TEMP 98.2
--- NOTE | 2016-11-22 08:08 | HHI.OB ---
Subjective Remarks Patient is a 26-year-old delivered at 35 weeks and 2 days. Patient is day 2 after an . Patient's pain is well-controlled. Patient reports that she was eating and drinking yesterday without any nausea or vomiting. She has not been eating today in preparation for EGD today. Patient reports minimal bleeding. Patient has passed gas but no bowel movements. Patient is walking without lower extremity pain or shortness of breath. Patient reports desire for contraception with oral control pills and bottle- feeding. Objective Vitals/I&O Vital Signs Date Time Temp Pulse Resp B/P Pulse Ox O2 Delivery O2 Flow Rate FiO2 11/21/16 20:00 98.1 70 18 11/21/16 20:00 126/73 11/21/16 08:50 98.2 97 18 123/78 Objective Remarks GENERAL: Well-nourished, well-developed patient. CARDIOVASCULAR: Regular rate and rhythm without murmurs, gallops, or rubs. RESPIRATORY: Breath sounds equal bilaterally. No accessory muscle use. ABDOMEN/GI: Abdomen soft, non-tender. Fundus: Firm, non-tender at umbilicus. GENITOURINARY: Light to moderate bleeding. EXTREMITIES: No cyanosis or edema, non-tender, without signs of DVT. Medications and IVs Current Medications Medications (Trade) Dose Ordered Sig/Sarah Route Start Time Stop Time Status Last Admin Pantoprazole Sodium 80 mg/ Sodium Chloride 100 ml @ 10 mls/hr Q10H IV 11/20/16 13:00 11/22/16 05:31 Lactated Ringer's 1,000 ml @ 125 mls/hr Q8H IV 11/20/16 15:23 11/20/16 16:03 Lactated Ringer's 1,000 ml @ 3,000 mls/hr Q20M PRN IV 11/20/16 15:23 11/20/16 16:02 (NS 1000 ml Inj) 1,000 ml @ 100 mls/hr Q10H PRN IV 11/20/16 15:43 (Zofran Inj) 4 mg Q6H PRN IV 11/20/16 15:30 (fentaNYL INJ) 50 mcg Q1H PRN IV PUSH 11/20/16 15:30 Fentanyl Citrate 100 mcg 100 mcg Q1H PRN IV PUSH 11/20/16 15:30 (Pfizerpen-G Inj/ NS Inj) 100 ml @ 200 mls/hr Q4H IV 11/20/16 20:00 Mineral Oil 10 ml 10 ml UNSCH PRN TOPICAL 11/20/16 15:30 (fentaNYL 2MCG-BUPIV 0.125% INJ) 100 ml @ 0 mls/hr TITRATE EPIDURAL 11/20/16 16:30 11/20/16 16:27 (NS Flush) 2 ml BID IV FLUSH 11/20/16 21:00 11/21/16 21:45 (NS Flush) 2 ml UNSCH PRN IV FLUSH 11/20/16 19:30 (Tylenol) 650 mg Q4H PRN PO 11/20/16 19:30 11/22/16 07:18 (Motrin) 600 mg Q6H PRN PO 11/20/16 19:30 11/22/16 07:19 (Americaine 20% Top Spr) 1 spray Q4H PRN TOPICAL 11/20/16 19:30 11/21/16 00:24 (Tucks Pads) 1 applic QID PRN TOPICAL 11/20/16 19:30 11/21/16 00:23 (Rimma-Colace) 2 tab Q12H PRN PO 11/20/16 19:30 (Ambien) 5 mg HS PRN PO 11/20/16 19:30 (Mag-Al Plus Susp Liq) 15 ml Q8H PRN PO 11/20/16 19:30 (Zofran Odt) 4 mg Q6H PRN PO 11/20/16 19:30 (Ativan) 1 mg Q12H PRN PO 11/20/16 19:30 Assessment/Plan Assessment and Plan 26 y/o female who is PPD# 2 s/p . Patient with possible GI bleed. Vaginal delivery, delivered -Continue routine care. -Percocet and Motrin PRN pain. -Encouraged OOB. Advised pelvic rest for 6 wks. -Re: control, patient expressed interest in oral control pills. We' ll discharge with Rx Possible GI bleed -Pt to be NPO -GI has been consulted, appreciate recommendations -Pt with reported coffee ground emesis while in the ED. On admission hemoglobin stable at 9.7. Patient with no additional episodes of emesis, denies hematochezia. She has not yet had a bowel movement, has not noted black or bloody stools. -Pt on Protonix drip -EGD scheduled for today. Plan to discharge afterwards. rodger Jones MD Discharge Planning -Anticipate discharge today after EGD. Neo Kurtz MD R1 November 22, 2016 08:08
[2016-11-22] MEDS ORDERED: IBUP-232 PO (08:44)
[2016-11-22] MEDS ORDERED: ACET1TAB86 PO (08:44)
[2016-11-22 08:45] VITALS: BP 119/75; PULSE 73; RESP 16; TEMP 98.2; O2SAT 97
--- NOTE | 2016-11-22 08:46 | HHI.DCPOC ---
Discharge Care Plan Diagnosis: (1) Upper GI bleed (2) (spontaneous vaginal delivery) Report Symptoms to Your Doctor -Temperature above 100.5 degrees -Redness, of incision or excessive or foul smelling drainage -Unusual pain or calf pain -Increased vaginal bleeding -Painful or difficulty urinating -Feelings of extreme sadness or anxiety after 2 weeks -coffee-ground vomit, black or bloody bowel movements Goals to Promote Your Health * To prevent worsening of your condition and complications, please follow up with your doctor within 6 weeks. * To maintain your health at the optimal level, please hydrate well, eat a balanced diet, and exercise regularly. Directions to Meet Your Goals Take your medications as prescribed Follow your dietary instruction Follow activity as directed Ensure plenty of rest for recovery Drink fluids for hydration Keep your appointments as scheduled Take your immunizations and boosters as scheduled If your symptoms worsen call your PCP, if no PCP go to Urgent Care Center or Emergency Room Smoking is Dangerous to Your Health. Avoid second hand smoke Call the 24-hour crisis hotline for domestic abuse at Neo Kurtz MD R1 November 22, 2016 08:46
[2016-11-22] MEDS ORDERED: FAMOTIDINE 20 MG/2 ML VIAL ONE ×2 (08:57→09:01)
[2016-11-22] MEDS ORDERED: ONDANSETRON HCL 4 MG/2 ML VIAL ONE (09:01)
[2016-11-22] MEDS ORDERED: PROPOFOL 200 MG/20 ML AMP IV ONE (09:11)
[2016-11-22 09:20] VITALS: TEMP 97.7
--- NOTE | 2016-11-22 09:25 | GIPROC ---
[facility] [address] [facility], [address] EGD PROCEDURE REPORT EXAM DATE: 11/22/2016 PATIENT NAME: Dianelys Og MR #: [id number] BIRTHDATE: 1990 ATTENDING: Bertin Hernandez MD ORDER #: [id number] [employer] SUPERVISOR: Jeremías Suh and Yuri Schaffer STATUS: inpatient INDICATIONS: The patient is a 26 yr old female here for an EGD due to hematemesis, nausea, and vomiting PROCEDURE PERFORMED: EGD, diagnostic MEDICATIONS: None and Per Anesthesia. TOPICAL ANESTHETIC: none CONSENT: The patient understands the risks and benefits of the procedure and understands that these risks include, but are not limited to: sedation, allergic reaction, infection, perforation and/or bleeding. Alternative means of evaluation and treatment include, among others: physical exam, x-rays, and/or surgical intervention. The patient elects to proceed with this endoscopic procedure. medical equipment was checked for proper function. Hand hygiene and appropriate measures for infection prevention was taken. After the risks, benefits and alternatives of the procedure were thoroughly explained, Informed consent was verified, confirmed and timeout was successfully executed by the treatment team. The patient was anesthetized with topical anesthesia and the Pentax [id number] endoscope was introduced through the mouth and advanced to the second portion of the duodenum. Retroflexion was performed and was normal The gastroscope was then slowly withdrawn and removed. ESOPHAGUS: There was LA Class B esophagitis noted. STOMACH: There was a moderate amount of residual food seen in the entire examined stomach. Due to the residual food, complete mucosal examination could not be performed. DUODENUM: The duodenal mucosa appeared normal in the duodenal bulb and 2nd part duodenum. ADVERSE EVENTS: There were no complications. IMPRESSIONS: 1. There was LA Class B esophagitis noted 2. Food residue in the entire examined stomach 3. Normal duodenal mucosa in the duodenal bulb and 2nd part duodenum 4. Retroflexion was performed and was normal RECOMMENDATIONS: No treatment PATIENT CONDITION: stable DISPOSITION: Observation REPEAT EXAM: Return for EGD as outpatient procedure with prolonged NPO Bertin Hernandez MD eSigned: Bertin Hernandez MD 11/22/2016 9:24 AM cc: DOCUMENT ADDENDUM eSigned: Bertin Hernandez MD 11/22/2016 10:45 AM Reason for addendum: [ ] Correction of inaccurate information [ ] Recently acquired lab/pathology results [ ] Additional information Comments: PATIENT NAME: Dianelys Og MR#: [id number]
[2016-11-22 09:29] VITALS: BP 121/61; PULSE 77; RESP 16; O2SAT 98
[2016-11-22] MEDS ORDERED: DO NOT ADM ANY ANTICOAGULANT DRUGS PRN (09:30)
[2016-11-22 11:10] LABS: RAPID PLASMA REAGIN SCREEN NON-REACTIVE (NON-REACTVE)
[2016-11-28 09:32] LABS: BATH SALTS (MDPV) UR NEG (NEG); ECSTASY (MDMA) UR NEG (NEG); GABAPENTIN UR NEG (NEG); HEROIN (6-ACETYLMORPHINE) UR NEG (NEG); HYDROMORPHONE U NEG (NEG); K2 SPICE UR NEG (NEG); OBMETHADONE UR NEG (NEG); OXYCODONE (PERCODAN) NEG (NEG); PHENCYCLIDINE URINE NEG (NEG)
== END 2016-11-22 13:04 | disposition home or self-care (01) | DRG 774 ==
LOC: HOBED 12:15 → H2EA 15:00 → OBSVTOIN 15:25 → H2EB 15:26 → H1EA 22:28
PROVIDERS: ADMIT Obstetrics & Gynecology Obstetrics; ATTEND Obstetrics & Gynecology Obstetrics
PROC: 10E0XZZ Delivery of Products of Conception, External Approach (ICD-10-PCS; principal; 2016-11-20)
PROC: 3E0S3CZ (ICD-10-PCS; 2016-11-20)
PROC: 00HU33Z Insertion of Infusion Device into Spinal Canal, Percutaneous Approach (ICD-10-PCS; 2016-11-20)
PROC: 0DJ08ZZ Inspection of Upper Intestinal Tract, Via Natural or Artificial Opening Endoscopic (ICD-10-PCS; 2016-11-22)
DX: O60.14X0 Preterm labor third trimester with preterm delivery third trimester, not applicable or unspecified (principal); O45.93 Premature separation of placenta, unspecified, third trimester; K92.0 Hematemesis; O99.323 Drug use complicating pregnancy, third trimester; O98.42 Viral hepatitis complicating childbirth; O99.613 Diseases of the digestive system complicating pregnancy, third trimester; K20.9 Esophagitis, unspecified; B19.20 Unspecified viral hepatitis C without hepatic coma; O09.30 Supervision of pregnancy with insufficient antenatal care, unspecified trimester; O71.82 Other specified trauma to perineum and vulva; D64.9 Anemia, unspecified; O99.02 Anemia complicating childbirth; O99.333 Smoking (tobacco) complicating pregnancy, third trimester; F17.210 Nicotine dependence, cigarettes, uncomplicated; Z3A.35 35 weeks gestation of pregnancy; Z37.0 Single live birth
CPT/HCPCS: 59025; 76937; 80053; 80074; 80307; 81001; 84112; 85025; 85610; 85730; 86592; 86703; 86850; 86900; 86901; 87086; 88307; 90715; 93005; 99285; C9113; G0481; J2405; J2540; J7030; J7120